=== PATIENT | male | born 1950 | race Caucasian/White ===

== ENCOUNTER 2019-04-07 01:11 | Observation (INO) ==
[2019-04-07] MEDS ORDERED: ASPIRIN PO ONE (01:25)
[2019-04-07] MEDS ORDERED: NITROGLYCERIN TOP ONE (01:58)
[2019-04-07] MEDS ORDERED: G.I. COCKTAIL PO ONE (03:26)
[2019-04-07 03:33] LABS: BASO# 0.04 X1000 (0.0-0.2); BASO% 0.3 % (0.0-0.8); EOS# 0.15 X1000 (0.0-0.7); HEMATOCRIT 43.5 % (42.0-52.0); HEMOGLOBIN 15.3 g/dL (14.0-18.0); IMM GRAN# 0.05 X1000 (0.0-0.04); IMM GRAN% 0.3 % (0.0-0.5); LYMPH# 1.81 X1000 (1.2-3.4); MCH 30.2 PG (27-31); MCHC 35.2 g/dL (33-37); MONO# 1.49 X1000 (0.11-0.59); MONO% 9.8 % (1.7-9.3); MPV 9.7 FL (7.4-10.4); NEUT% 76.6 % (42.2-75.2); PLT 265 X1000 (130-400); RBC 5.06 XMIL (4.7-6.1); RDW 12.8 % (11.5-14.5); WBC 15.14 X1000 (4.8-10.8)
[2019-04-07 03:52] LABS: ALB/GLOB RATIO 1.3; ALBUMIN 4.6 g/dL (3.5-5.0); CREATININE 1.3 mg/dL (0.7-1.2); POTASSIUM 3.9 mmol/L (3.5-5.1); TOTAL BILIRUBIN 1.33 mg/dL (0.20-1.00); TOTAL PROTEIN 8.1 g/dL (6.3-8.3)
[2019-04-07 05:18] LABS: URINE SOURCE CLEAN CATCH
[2019-04-07 05:44] LABS: BILIRUBIN URINE NEGATIVE (NEGATIVE); BLOOD URINE NEGATIVE (NEGATIVE); COLOR YELLOW; GLUCOSE URINE 70 mg/dL (NEGATIVE); KETONE URINE NEGATIVE (NEGATIVE); LEUKOCYTES URINE NEGATIVE (NEGATIVE); NITRITE URINE NEGATIVE (NEGATIVE); PH URINE 8.5; PROTEIN URINE TRACE mg/dL (NEGATIVE); SP GRAVITY URINE 1.015; TURBIDITY URINE CLEAR (CLEAR); UROBILINOGEN URINE NORMAL (NORMAL)
[2019-04-07 05:46] LABS: UR EPITHELIAL CELLS <10 /HPF (<10); URINE BACTERIA NEGATIVE /HPF; URINE RBC <10 /HPF (<10); URINE WBC <10 /HPF (<10)
--- NOTE | 2019-04-07 05:52 | Diag Imaging Result Doc PS360 ---
EXAM: CT ABD/PELVIS W/IV CONT ONLY HISTORY: ruq and abd pain TECHNIQUE: CT abdomen and pelvis with intravenous contrast COMPARISON: None. FINDINGS: There is marked fatty infiltration of the liver. There are scattered hepatic and splenic granuloma. Sagittal images found within the gallbladder. Mild adjacent inflammation. Normal spleen, pancreas, and right adrenal gland. There is a 1.5 cm left adrenal nodule. There are several nonobstructing left renal stones. No hydronephrosis. There is a small left renal cyst. Prominent atherosclerosis. No aortic aneurysm. Normal appendix. No abscess. Bowel obstruction. There are scattered colonic diverticula. The urinary bladder is distended and is normal. Normal prostate. IMPRESSION: 1.Acute cholecystitis 2.Marked fatty infiltration of the liver 3.Nonobstructing left renal stones 4.Small left adrenal nodule This exam was performed using automated exposure control, adjustment of mA or kV according to patient size, and/or use of iterative reconstruction technique. Electronically signed by Jose Miguel Preciado 04/07/2019 5:50 AM
[2019-04-07] MEDS ORDERED: MORPHINE IV ONE ×2 (06:19→08:51)
[2019-04-07] MEDS ORDERED: NS 100 ML IV ONE (07:13)
[2019-04-07] MEDS ORDERED: ZOSYN 4.5 GM in NS 100 ML IV ONE (07:13)
--- NOTE | 2019-04-07 07:16 | PROVIDER DOCUMENTATION ---
This chart was entered by Ruthie Hair Scribe, acting as scribe for Carri Gutierrez MD. HPI-Chest Pain - General Chief Complaint: Epigastric Pain Stated Complaint: CHEST PAIN Time Seen by Provider: 04/07/19 01:23 Source: patient Allergies/Adverse Reactions: Patient Allergies Allergy/AdvReac Type Severity Reaction Status Date / Time aspirin AdvReac SWELLING Verified 04/07/19 02:18 Home Medications: Home Medication List Medication Instructions Recorded Confirmed Last Taken Type Amlodipine [Norvasc] 10 mg PO DAILY 12/22/15 12/22/15 1 Day Ago History ~12/21/15 Aspirin [Aspirin EC] 81 mg PO DAILY 12/22/15 12/22/15 1 Day Ago History ~12/21/15 Atorvastatin Calcium 1 tab PO DAILY 12/22/15 12/22/15 2 Days Ago History ~12/20/15 Glimepiride 4 mg PO DAILY 12/22/15 12/22/15 2 Days Ago History ~12/20/15 Isosorbide Mononitrate E.r. [Imdur] 30 mg PO QHS 12/22/15 12/22/15 2 Days Ago History ~12/20/15 Losartan/Hydrochlorothiazide 1 tab PO DAILY 12/22/15 12/22/15 1 Day Ago History [Losartan-Hctz 100-25 mg Tab] ~12/21/15 Metoprolol Tartrate 50 mg PO DAILY 12/22/15 12/22/15 1 Day Ago History ~12/21/15 Pantoprazole [Protonix] 40 mg PO QHS 12/22/15 12/22/15 1 Day Ago History ~12/21/15 - History of Present Illness-CP Nature of Presenting Problem: pt is a 69 yr old male presenting with 24 hr hx of epigastric pain radiating to RUQ, back, nausea, no vomiting. pt denies shortness of breath. hx of CAD, cardiac stents in place Location: reports: epigastric Chest Pain Radiation: reports: back, other (RUQ) Quality of Pain: reports: aching Severity in ED: moderate Onset/Duration: 24 hours ago Timing: still present Context/Activities at Onset: reports: rest Modifying Factors: improves with: nothing Associated Symptoms: reports: back pain, nausea. denies: shortness of breath, vomiting Nitro Today/Relief: no nitro taken today Aspirin Treatment Today: 325 mg x 1, provided by ED Similar Symptoms Previously?: No Recently Seen Here or By Another Healthcare Provider: No Review of Systems - Adult - REVIEW OF SYSTEMS - ADULT Constitutional: denies: chills, fever, fatique Eyes: reports: no symptoms reported Ears, Nose, Mouth & Throat: reports: no symptoms reported Cardiovascular: reports: chest pain. denies: palpitations, syncope Respiratory: denies: cough, shortness of breath Gastrointestinal: reports: abdominal pain, nausea. denies: diarrhea, vomiting Genitourinary: denies: dysuria, frequency, urinary retention Musculoskeletal: reports: back pain. denies: neck pain Integumentary: reports: no symptoms reported Neurological: denies: dizziness/vertigo, headache/migraines Psychiatric: reports: no symptoms reported Endocrine: reports: no symptoms reported Hematologic/Lymphatic: reports: no symptoms reported Allergic/Immunologic: reports: no symptoms reported All Other Systems: Reviewed and Negative Past History - Adult - PAST MEDICAL HISTORY-ADULT Review of Records: reports: Old Records Reviewed, Nursing Assessment Review, Medications Reviewed, Social history reviewed & non-contributory. Major Childhood Illnesses: reports: denies history Cardiovascular: reports: denies history Respiratory: reports: denies history Gastrointestinal: reports: denies history Obstetrical/Gynecological: reports: denies history Genitourinary: reports: denies history Musculoskeletal: reports: denies history Neurological: reports: denies history Endocrine/Immune: reports: denies history Other Conditions: reports: denies history - IMMUNIZATION STATUS Childhood Immunizations: See Nurse Assessment Flu Vaccine: See Nurse Assessment - FAMILY HISTORY Family History: reviewed, not pertinent - SOCIAL HISTORY Smoking: quit greater than 1 year Substance Use: denies Living Situation: family Physical Exam-General - PHYSICAL EXAM-ADULT Initial Vital Signs Reviewed: Yes - CONSTITUTIONAL General Appearance: alert, no apparent distress - EYES Eyes: PERRL/EOMI - HEAD, EARS, NOSE, MOUTH & THROAT HENMT: normocephalic/atraumatic, moist mucous membranes - NECK Neck: non-tender, full range of motion, supple, normal inspection - RESPIRATORY Respiratory: chest non-tender, lungs clear, normal breath sounds, no respiratory distress, no accessory muscle use - CARDIOVASCULAR Cardiovascular: normal peripheral pulses, no edema, tachycardia - GASTROINTESTINAL (ABDOMEN) Abdominal Exam: normal bowel sounds, soft, tenderness (epigastric, RUQ tenderness) - LYMPHATIC Lymphatic: no adenopathy - MUSCULOSKELETAL Back Exam: normal inspection Extremity: normal range of motion, non-tender, normal gait, normal inspection - SKIN Integumentary: normal color, normal turgor, warm/dry - NEUROLOGIC Neurologic: grossly normal - PSYCHIATRIC Psych/Mental Status: normal mood/affect - HEART Score HEART Score: History: Slightly Suspicious HEART Score: ECG: Non-Specific Repolarization Disturbance/LBBB/PM HEART Score: Age: > or = 65 Years HEART Score: Risk Factors for Atherosclerotic Disease: > or = 3 Risk Factors or History of Atherosclerotic Disease HEART Score: Troponin: < or = Normal Limit Total HEART Score:: 5 Progress - PLAN OF CARE/RESULTS Progress/Plan/Lab Results: Vital Signs - 8 hr 04/07/19 01:19 04/07/19 01:33 04/07/19 01:35 Temperature 97.9 F Pulse Rate 102 H 91 H 90 Respiratory Rate 20 17 19 Blood Pressure 143/90 177/86 O2 Sat by Pulse Oximetry 95 99 04/07/19 01:40 04/07/19 01:50 04/07/19 02:00 Temperature Pulse Rate 85 75 79 Respiratory Rate 20 21 18 Blood Pressure O2 Sat by Pulse Oximetry 100 100 100 04/07/19 02:03 04/07/19 02:10 04/07/19 02:20 Temperature Pulse Rate 82 79 79 Respiratory Rate 19 13 19 Blood Pressure 171/77 O2 Sat by Pulse Oximetry 100 99 100 04/07/19 02:30 04/07/19 02:33 04/07/19 02:40 Temperature Pulse Rate 77 79 86 Respiratory Rate 13 17 11 L Blood Pressure 165/81 O2 Sat by Pulse Oximetry 100 100 99 04/07/19 02:50 04/07/19 03:00 04/07/19 03:03 Temperature Pulse Rate 85 91 H 93 H Respiratory Rate 19 29 H 19 Blood Pressure 165/86 O2 Sat by Pulse Oximetry 99 100 99 04/07/19 03:10 04/07/19 04:28 04/07/19 04:29 Temperature Pulse Rate 79 97 H 103 H Respiratory Rate 16 20 14 Blood Pressure 148/84 O2 Sat by Pulse Oximetry 99 94 L 04/07/19 04:31 04/07/19 04:33 04/07/19 04:40 Temperature Pulse Rate 92 H 98 H 97 H Respiratory Rate 17 17 13 Blood Pressure 130/67 O2 Sat by Pulse Oximetry 93 L 92 L 94 L 04/07/19 04:50 04/07/19 05:00 04/07/19 05:03 Temperature Pulse Rate 96 H 96 H 105 H Respiratory Rate 12 15 16 Blood Pressure 145/100 O2 Sat by Pulse Oximetry 94 L 95 92 L 04/07/19 05:26 04/07/19 05:30 04/07/19 05:32 Temperature Pulse Rate 98 H 93 H 96 H Respiratory Rate 15 15 22 Blood Pressure 149/83 O2 Sat by Pulse Oximetry 91 L 96 92 L 04/07/19 05:40 04/07/19 05:50 04/07/19 06:00 Temperature Pulse Rate 98 H 101 H 102 H Respiratory Rate 24 22 14 Blood Pressure O2 Sat by Pulse Oximetry 94 L 93 L 94 L 04/07/19 06:02 04/07/19 06:10 04/07/19 06:20 Temperature Pulse Rate 100 H 98 H 97 H Respiratory Rate 17 25 H 19 Blood Pressure 129/72 O2 Sat by Pulse Oximetry 94 L 92 L 93 L 04/07/19 06:30 04/07/19 06:32 04/07/19 06:40 Temperature Pulse Rate 101 H 100 H 99 H Respiratory Rate 24 19 13 Blood Pressure 150/89 O2 Sat by Pulse Oximetry 92 L 94 L Laboratory Results - last 24 hr 04/07/19 04/07/19 04/07/19 03:00 03:00 03:00 WBC 15.14 H RBC 5.06 Hgb 15.3 Hct 43.5 MCV 86.0 MCH 30.2 MCHC 35.2 RDW Std Deviation 12.8 Plt Count 265 MPV 9.7 Immature Gran % (Auto) 0.3 Neut % (Auto) 76.6 H Lymph % (Auto) 12.0 L [place] % (Auto) 9.8 H Eos % (Auto) 1.0 Baso % (Auto) 0.3 Immature Gran # (Auto) 0.05 H Neut # (Auto) 11.60 H Lymph # (Auto) 1.81 [place] # (Auto) 1.49 H Eos # (Auto) 0.15 Baso # (Auto) 0.04 Sodium 138 Potassium 3.9 Chloride 100 Carbon Dioxide 22 L Anion Gap 16 BUN 16 Creatinine 1.3 H Estimated GFR/1.73 m2 55 BUN/Creatinine Ratio 12 Glucose 192 H Calculated Osmolality 282 Calcium 10.0 Total Bilirubin 1.33 H AST 17 ALT 29 Alkaline Phosphatase 59 Creatine Kinase 120 Troponin T < 0.010 Total Protein 8.1 Albumin 4.6 Globulin 3.5 Albumin/Globulin Ratio 1.3 Amylase 20 Lipase 16 Urine Source Urine Color Urine Turbidity Urine pH Ur Specific [place] Urine Protein Ur Glucose (Stick) Ur Ketones (Stick) Urine Blood Urine Nitrite Urine Bilirubin Urobilinogen Dipstick Urine Leukocytes Urine WBC (Auto) Urine RBC (Auto) U Epithel Cells (Auto) Urine Bacteria (Auto) 04/07/19 04/07/19 04/07/19 03:50 06:40 06:40 WBC RBC Hgb Hct MCV MCH MCHC RDW Std Deviation Plt Count MPV Immature Gran % (Auto) Neut % (Auto) Lymph % (Auto) [place] % (Auto) Eos % (Auto) Baso % (Auto) Immature Gran # (Auto) Neut # (Auto) Lymph # (Auto) [place] # (Auto) Eos # (Auto) Baso # (Auto) Sodium Potassium Chloride Carbon Dioxide Anion Gap BUN Creatinine Estimated GFR/1.73 m2 BUN/Creatinine Ratio Glucose Calculated Osmolality Calcium Total Bilirubin AST ALT Alkaline Phosphatase Creatine Kinase 130 Troponin T < 0.010 Total Protein Albumin Globulin Albumin/Globulin Ratio Amylase Lipase Urine Source CLEAN CATCH Urine Color YELLOW Urine Turbidity CLEAR Urine pH 8.5 Ur Specific [place] 1.015 Urine Protein TRACE A Ur Glucose (Stick) 70 A Ur Ketones (Stick) NEGATIVE Urine Blood NEGATIVE Urine Nitrite NEGATIVE Urine Bilirubin NEGATIVE Urobilinogen Dipstick NORMAL Urine Leukocytes NEGATIVE Urine WBC (Auto) <10 Urine RBC (Auto) <10 U Epithel Cells (Auto) <10 Urine Bacteria (Auto) NEGATIVE Orders Category Date Time Status Saline Loc DIRECTED Care 04/07/19 01:24 Active NPO Diet 04/07/19 01:24 Active CHEST-1 VIEW [RAD] Stat Exams 04/07/19 01:[address] ABD/PELVIS W/IV CONT ONLY [CT] Stat Exams 04/07/19 04:39 Completed AMYLASE [CHEM] Stat Lab 04/07/19 03:00 Completed CBC WITH ELECTRONIC DIFF [HEME] Stat Lab 04/07/19 03:00 Completed CK PROFILE [SP CHEM] Stat Lab 04/07/19 03:00 Completed CK PROFILE [SP CHEM] Stat Lab 04/07/19 06:40 Completed COMPREHENSIVE METABOLIC PANEL [CHEM] Stat Lab 04/07/19 03:00 Completed LIPASE [CHEM] Stat Lab 04/07/19 03:00 Completed TROPONIN T Stat Lab 04/07/19 03:00 Completed TROPONIN T Stat Lab 04/07/19 06:40 Completed URINALYSIS W/POSS RFLX CULT [URINALYSIS] Stat Lab 04/07/19 03:50 Completed Aspirin Med 04/07/19 01:25 Discontinued 325 mg PO NOW ONE Lido/Garcia Alk/Al&mg Hydrox [G.i. Cocktail] Med 04/07/19 03:26 Discontinued 30 ml PO NOW ONE Morphine Med 04/07/19 06:19 Discontinued 2 mg IV NOW ONE Nitroglycerin Med 04/07/19 01:58 Discontinued 1 inch TOP NOW ONE EKG [EKG] Stat Ther 04/07/19 01:21 Ordered EKG [EKG] Stat Ther 04/07/19 06:09 Ordered Result Diagrams: 04/07/19 03:00 04/07/19 03:00 - EKG 1 Time of EKG reading by physician:: 01:28 EKG Read and Signed by:: Carri Gutierrez EKG Interpretation (*Must complete 3 of following elements*): Abnormal (poss LAE left anterior fasicular block bifasicular block can not rule out septal infarct-age undetermined) Rate: 90 Rhythm: nsr [place]: normal QRS: RBB, LVH 2 Time of EKG reading by physician:: 06:12 EKG Interpretation (*Must complete 3 of following elements*): Abnormal Rate: 102 [place]: normal QRS: RBB, other (LAFB) MO Interval: normal ST Wave: non-specific ST changes Prior EKG Comparison: unchanged from prior - CT/MRI 1 CT Study: Abdomen Impression: Abnormal (EXAM: CT ABD/PELVIS W/IV CONT ONLY HISTORY: ruq and abd pain TECHNIQUE: CT abdomen and pelvis with intravenous contrast COMPARISON: None. FINDINGS: There is marked fatty infiltration of the liver. There are scattered hepatic and splenic granuloma. Sagittal images found within the gallbladder. Mild adjacent inflammation. Normal spleen, pancreas, and right adrenal gland. There is a 1.5 cm left adrenal nodule. There are several nonobstructing left renal stones. No hydronephrosis. There is a small left renal cyst. Prominent atherosclerosis. No aortic aneurysm. Normal appendix. No abscess. Bowel obstruction. There are scattered colonic diverticula. The urinary bladder is distended and is normal. Normal prostate. IMPRESSION: 1.Acute cho lecystitis 2.Marked fatty infiltration of the liver 3.Nonobstructing left renal stones 4.Small left adrenal nodule This exam was performed using automated exposure control, adjustment of mA or kV according to patient size, and/or use of iterative reconstruction technique. Electronically signed by Jose Miguel Preciado 04/07/2019 5:50 AM) - CONSULTS/PCP/HOSPITALIST Notification #1 *Consult/PCP/Hospitalist*: DR SORENSEN Time Discussed: 07:09 Reason/Comments: RECOMMENDED NPO, ADMISSION, ZOSYN AND IVF Consult Disposition: Will see in ED Departure - Departure Date of Disposition Decision: 04/07/19 Time of Disposition Decision: 07:12 DIAGNOSIS: Epigastric pain, Acute cholecystitis Disposition: ADMITTED INPATIENT 09 Certified Medical Emergency: Emergent Condition: Stable Referrals and Follow-Ups: Leena Mack CRNP [Primary Care Provider] - - Critical Care Note This patient required my direct & personal management of CC.: No Attestation - Physician/ BROOKE Attestation Patient care was provided by Advanced Practice Provider:: No The physician spent face to face time with patient:: Yes Advanced Practice Provider documentation review:: Supervising physician onsite and consulted in the evaluation and care of this patient. The physician did have a face to face encounter with the patient. This chart was documented by the indicated scribe, (Ruthie Hair Scribe) and accurately reflects the services I performed and decisions made by me, Carri Gutierrez MD, as attested by the provider's signature.
--- NOTE | 2019-04-07 07:37 | Diag Imaging Result Doc PS360 ---
EXAM: CHEST-1 VIEW HISTORY: CP TECHNIQUE: Chest single view COMPARISON: 12/22/2015 FINDINGS: The lungs are well expanded. The heart is not enlarged. The vessels are not distended. There are no infiltrates. No effusion identified. IMPRESSION: Negative exam. Electronically signed by Jose Miguel Preciado 04/07/2019 7:35 AM
[2019-04-07] MEDS ORDERED: MARCAINE 0.25% PF/EPI 1:200,000 ONE (09:55)
[2019-04-07] MEDS ORDERED: SODIUM CHLORIDE 0.9% ONE (09:55)
[2019-04-07] MEDS ORDERED: LR 1,000 ML ONE (09:55)
[2019-04-07] MEDS ORDERED: HURRICAINE SPRAY (DOSE) ONE (09:58)
[2019-04-07] MEDS ORDERED: XYLOCAINE-MPF 2% ONE ×2 (10:06→11:37)
[2019-04-07] MEDS ORDERED: ROBINUL ONE (10:06)
[2019-04-07] MEDS ORDERED: NEOSTIGMINE ONE (10:06)
[2019-04-07] MEDS ORDERED: ZEMURON ONE (10:06)
[2019-04-07] MEDS ORDERED: FENTANYL ONE (10:06)
[2019-04-07] MEDS ORDERED: QUELICIN (DOSE) ONE (10:06)
[2019-04-07] MEDS ORDERED: DIPRIVAN 1% ONE (10:07)
[2019-04-07] MEDS ORDERED: ZOFRAN ONE (10:09)
[2019-04-07] MEDS ORDERED: NEO-SYNEPHRINE ONE (10:40)
[2019-04-07] MEDS ORDERED: SODIUM CHLORIDE 0.9% 10 ML ONE (10:40)
--- NOTE | 2019-04-07 11:37 | Diag Imaging Result Doc PS360 ---
EXAM: OPERATIVE CHOLANGIOGRAM HISTORY: GALLBLADDER TECHNIQUE: Intraoperative cholangiogram, single view COMPARISON: None. FINDINGS: Contrast fills the common bile duct. No stone or stricture. IMPRESSION: Normal intraoperative diaphragm. Electronically signed by Jose Miguel Preciado 04/07/2019 11:35 AM
[2019-04-07] MEDS ORDERED: BUPRENEX IV PRN (11:55)
[2019-04-07] MEDS ORDERED: ZOFRAN IV PRN (11:55)
[2019-04-07] MEDS: DILAUDID ONE ×2 (12:22→12:25)
[2019-04-07] MEDS ORDERED: NS 1,000 ML ONE (12:28)
[2019-04-07] MEDS: NORCO-10 PO PRN ×3 (13:29→23:45)
[2019-04-07] MEDS: NS 1,000 ML IV SCH (13:29)
--- NOTE | 2019-04-07 23:35 | OPERATIVE NOTE ---
PROCEDURE DATE: 04/07/2019 PREOPERATIVE DIAGNOSIS: Acute cholecystitis. POSTOPERATIVE DIAGNOSIS: Acute cholecystitis. PROCEDURE: Laparoscopic cholecystectomy with operative cholangiogram. SURGEON: Ernique White MD. ANESTHESIA: General. ESTIMATED BLOOD LOSS: 30 mL. COMPLICATIONS: None apparent. SPECIMENS: Gallbladder. FINDINGS: The gallbladder was acutely inflamed and full of sludge. The cholangiogram revealed normal proximal hepatic radicles as well as distal bile duct. There was flow of contrast into the duodenum without filling defects or stenoses. TECHNIQUE: The patient was brought to the operating room and placed supine on the table. General anesthesia was induced. He was prepped and draped in usual sterile fashion. Marcaine 0.25% with epinephrine was used to anesthetize our incisions. An 11 mm incision was made above the umbilicus in the midline. The fascia was exposed and incised sharply. Entry into the peritoneal cavity was obtained under direct vision with the Optiview device. Pneumoperitoneum was established. The camera was inserted. There was no evidence of injury to underlying structures. He was placed in reverse Trendelenburg and left rotation. Three 5 mm incision ports were placed under direct vision in the epigastrium, right upper quadrant, below the costal margin per usual routine. The gallbladder was covered under some omental adhesions to the liver. I took these down with hook cautery. There were a couple of small superficial lacerations in the liver, but they did not have much bleeding with them. When the gallbladder wall was visualized, it was grasped with an Allis clamp and lifted up superiorly. The gallbladder was then lifted up superiorly and omental adhesions were pushed off the wall of the gallbladder bluntly with the suction tip. I then began dissecting out the triangle of [place]ot with the blunt tip of the suction and laparoscopic Kittner dissectors. I encountered the cystic artery, it was clipped proximally and distally, and incised between with scissors. I then dissected out the cystic duct. The gallbladder-liver junction was seen. The critical view was obtained. The cystic duct was the only remaining structure entering the gallbladder. A clip was placed on the distal cystic duct. A ductotomy was made proximal to this with scissors. A 14-gauge Angiocath was passed through this into the cystic duct and held in place with a clip. The cholangiogram was performed with findings as noted above. The clip, catheter, and Angiocath were removed. The gallbladder was then removed from the liver bed using hook cautery, obtaining hemostasis along the way. After it was removed, the gallbladder was placed in an EndoCatch bag. Of note, the gallbladder was somewhat friable and tore in a couple of areas. There was some sludge and bile spilled out. After the gallbladder was placed in the bag, I then copiously irrigated in the right upper quadrant and suctioned out the irrigation, old blood, and sludge. There was no signs of any remaining stones. There is no signs of any further bleeding or bile leakage. The gallbladder and bag was brought up into the umbilical port site. We then desufflated the abdomen and removed the ports. The gallbladder and bag was removed. The umbilical fascia was closed with a running 0 Vicryl. The skin was closed with a 4-0 subcuticular Monocryl and Steri-Strips. There were no apparent complications. He was awakened in stable condition and transferred to the recovery room. cc: Enrique White MD
[2019-04-07] MEDS: IMDUR PO SCH (23:46)
[2019-04-07] MEDS: PROTONIX PO SCH (23:47)
[2019-04-08 06:46] LABS: HEMATOCRIT 38.7 % (42.0-52.0); HEMOGLOBIN 12.8 g/dL (14.0-18.0); MCH 30.3 PG (27-31); MCHC 33.1 g/dL (33-37); MCV 91.7 FL (81-99); MPV 9.6 FL (7.4-10.4); RBC 4.22 XMIL (4.7-6.1); RDW 13.2 % (11.5-14.5); WBC 11.24 X1000 (4.8-10.8)
[2019-04-08] MEDS: NORCO-10 PO PRN ×3 (08:00→18:32)
[2019-04-08] MEDS: HYZAAR 50/12.5 MG PO SCH (09:24)
[2019-04-08] MEDS: NORVASC PO SCH (09:24)
[2019-04-08] MEDS: ASPIRIN EC PO SCH (09:24)
[2019-04-08] MEDS: LIPITOR PO SCH (09:25)
[2019-04-08] MEDS: LOPRESSOR PO SCH (09:25)
[2019-04-08] MEDS: ZOSYN 3.375 GM in NS 50 ML IV SCH ×3 (10:04→21:08)
[2019-04-08 12:32] LABS: HEMATOCRIT 36.4 % (42.0-52.0); HEMOGLOBIN 12.3 g/dL (14.0-18.0)
--- NOTE | 2019-04-08 15:03 | GENERAL SURGERY PROGRESS NOTE ---
DATE: 04/08/2019 SUBJECTIVE: The patient feels better today than he did yesterday. No nausea or vomiting. OBJECTIVE: His T-max is 100.4 degrees, pulse 114-129, blood pressure 156/77, O2 saturation 89%. General: He is awake, alert, oriented x3. No acute distress. Gastrointestinal: Soft, nondistended. Appropriately tender. Incision is clean, dry, and intact. Respiratory: No work of breathing. CV: Tachycardic, irregular. Laboratory: White blood cell count 11, hemoglobin 12.8, hematocrit 38.7. ASSESSMENT AND PLAN: A 69-year-old male postoperative day 1 laparoscopic cholecystectomy for acute cholecystitis. He is still febrile and tachycardic. We will keep him on the Zosyn and intravenous fluids, and also start some oxygen through the nasal cannula. I went him to ambulate and use his incentive spirometer today. We will recheck his hemoglobin and hematocrit later. cc: Enrique White MD
[2019-04-08] MEDS: NS 1,000 ML IV SCH ×2 (16:25→18:31)
[2019-04-08] MEDS: PROTONIX PO SCH (21:08)
[2019-04-08] MEDS: IMDUR PO SCH (21:08)
[2019-04-09] MEDS: ZOSYN 3.375 GM in NS 50 ML IV SCH ×4 (02:48→20:53)
[2019-04-09 06:12] LABS: HEMATOCRIT 36.4 % (42.0-52.0); HEMOGLOBIN 12.4 g/dL (14.0-18.0)
--- NOTE | 2019-04-09 07:25 | EKG Report ---
Test Performed on : 04/07/2019 08:40:14 AM Test Reason : monitor changes and tachycardia Blood Pressure : / mmHG Vent. Rate : 098 BPM Atrial Rate : 098 BPM P-R Int : 190 ms QRS Dur : 142 ms QT Int : 378 ms P-R-T Axes : 049 -54 046 degrees QTc Int : 482 ms Normal sinus rhythm. Possible Left atrial enlargement Right bundle branch block Left anterior fascicular block Bifascicular block Left ventricular hypertrophy Cannot rule out Septal infarct (cited on or before 07-APR-2019) Abnormal ECG When compared with ECG of 07-APR-2019 06:11, (Unconfirmed) No significant change was found Unconfirmed Result
--- NOTE | 2019-04-09 07:26 | EKG Report ---
Test Performed on : 04/07/2019 01:27:11 AM Test Reason : chest pain Blood Pressure : / mmHG Vent. Rate : 090 BPM Atrial Rate : 090 BPM P-R Int : 176 ms QRS Dur : 144 ms QT Int : 398 ms P-R-T Axes : 031 -58 039 degrees QTc Int : 486 ms Normal sinus rhythm. Possible Left atrial enlargement Right bundle branch block Left anterior fascicular block Bifascicular block Left ventricular hypertrophy Cannot rule out Septal infarct , age undetermined Abnormal ECG When compared with ECG of 22-DEC-2015 15:40, AR interval has decreased Minimal criteria for Septal infarct are now present T wave inversion no longer evident in Inferior leads Unconfirmed Result
[2019-04-09] MEDS: ASPIRIN EC PO SCH (08:58)
[2019-04-09] MEDS: LOPRESSOR PO SCH (08:58)
[2019-04-09] MEDS: LIPITOR PO SCH (08:58)
[2019-04-09] MEDS: NORVASC PO SCH (08:58)
[2019-04-09] MEDS: HYZAAR 50/12.5 MG PO SCH (08:59)
[2019-04-09] MEDS: NS 1,000 ML IV SCH (09:07)
[2019-04-09] MEDS: NORCO-10 PO PRN ×2 (09:09→20:52)
[2019-04-09] MEDS ORDERED: LOVENOX SUBQ SCH (11:30)
--- NOTE | 2019-04-09 12:42 | GENERAL SURGERY PROGRESS NOTE ---
DATE: 04/09/2019 SUBJECTIVE: Doing okay. He has had some bowel function. His pain still persists. He did require some O2 as well. OBJECTIVE: Abdomen is soft. Incision intact. LABORATORY DATA: Reviewed his labs. Hematocrit is stable at 26, glucose 197. ASSESSMENT/PLAN: A 69-year-old gentleman status post laparoscopic cholecystectomy on Tuesday by Dr. White. Still requiring some O2. Still having some pain but not inappropriate. We will monitor him closely. Dr. White has him on antibiotics. He may be home later today or tomorrow depending on how he progresses today. cc: MD Enrique Barbour MD
[2019-04-09] MEDS: IMDUR PO SCH (20:53)
[2019-04-09] MEDS: PROTONIX PO SCH (20:54)
[2019-04-10] MEDS: NS 1,000 ML IV SCH ×2 (01:10→05:40)
[2019-04-10] MEDS: ZOSYN 3.375 GM in NS 50 ML IV SCH ×2 (03:43→09:38)
[2019-04-10] MEDS: NORCO-10 PO PRN ×2 (04:25→09:48)
[2019-04-10] MEDS: NORVASC PO SCH (09:37)
[2019-04-10] MEDS: LIPITOR PO SCH (09:37)
[2019-04-10] MEDS: HYZAAR 50/12.5 MG PO SCH (09:37)
[2019-04-10] MEDS: LOPRESSOR PO SCH (09:37)
[2019-04-10] MEDS: ASPIRIN EC PO SCH (09:38)
--- NOTE | 2019-04-10 11:10 | GENERAL SURGERY PROGRESS NOTE ---
DATE: 04/10/2019 SUBJECTIVE: The patient is doing okay. He has had some right-sided pain, but it is manageable with his pain pill. He is tolerating p.o. He is ambulating. He is off oxygen now. OBJECTIVE: Vital Signs: He is afebrile. Vital signs are stable. General: He is awake, alert, oriented x4. No acute distress. Respiratory: No work of breathing. CV: Regular rate and rhythm. Gastrointestinal: Soft, nondistended, minimally tender. Incision is clean, dry and intact. LABORATORY: None today. ASSESSMENT AND PLAN: A 69-year-old male status post laparoscopic cholecystectomy for acute cholecystitis. He has made good improvement. We will discharge him home today. Instructions were given. cc: Enrique Whiet MD
[2019-04-10 11:27] VITALS: BP 137/63
== END 2019-04-10 11:57 | disposition home or self-care (01) ==
LOC: 4N 01:11 → ED 01:11
PROVIDERS: ADMIT Surgery; ATTEND Surgery
CPT/HCPCS: 71010; 71045; 74177; 74300; 80053; 81001; 82150; 82550; 82948; 83605; 83690; 84484; 85014; 85018; 85025; 85027; 87040; 88304; 93005; 94761; 99284; A9270; C1751; J0330; J1170; J1650; J2270; J2370; J2405; J2543; J3010; J7030; J7120; Q9966; Q9967; XXXXX